=== PATIENT | male | born 1940 | race Caucasian/White ===

== ENCOUNTER 2018-06-13 05:35 | Emergency (ER) | payer OTHER ==
[2018-06-13] MEDS ORDERED: DIPHENHYDRAMINE 50 MG/ML VIAL ONE (06:41)
[2018-06-13] MEDS ORDERED: DEXAMETHASONE 4 MG/ML VIAL ONE (06:42)
[2018-06-13] MEDS ORDERED: FAMOTIDINE 20 MG/2 ML VIAL IV ONE (06:42)
[2018-06-13] MEDS ORDERED: NA CHLORIDE 0.9% 500 ML ONE (06:42)
[2018-06-13 06:58] LABS: Absolute Lymphocytes (CBC) 0.7 K/uL (0.7-4.9); Absolute Monocytes 0.9 K/uL (0.1-1.3); Absolute Neutrophil 5.8 K/uL (1.8-8.0); Basophils % 0.9 % (0-1.3); Hematocrit 44.5 % (39.6-49.0); Lymphocytes % 9.3 % (15.3-44.8); MPV 9.3 fL (7.6-11.3); Monocytes % 11.1 % (3.3-12.3); RBC Red Blood Cell Count 4.96 M/uL (4.33-5.43)
--- NOTE | 2018-06-13 07:11 | EDPHYS ---
Physician Documentation [facility] Name: Oz Jiménez Age: 78 yrs Sex: Male : 1940 Arrival Date: 06/13/2018 Time: 05:36 Bed 13 Private MD: Rangel Machuca R ED Physician Ravin Louise HPI: 06/13 06:13 This 78 yrs old Male presents to ER via Ambulatory with complaints of tamir Allergic Reaction, Facial Swelling. 06:13 The patient presents with itching, rash, redness of skin. Onset: The symptoms/episode tamir began/occurred 5 day(s) ago. Associated signs and symptoms: The patient has no apparent associated signs or symptoms. Possible causes: The patient has no known obvious cause for the symptoms. At home the patient or guardian has treated the symptoms with antifungal meds. Severity of symptoms: At their worst the symptoms were mild moderate in the emergency department the symptoms are unchanged. The patient has not experienced similar symptoms in the past. Historical: - Allergies: 05:41 No Known Allergies; cc3 - PMHx: 05:41 Hypertension; hydrocephalus; cc3 - Immunization history:: Adult Immunizations not up to date. - Social history:: Smoking status: Patient/guardian denies using tobacco, never smoked. - Ebola Screening: : No symptoms or risks identified at this time. ROS: 06:16 Constitutional: Negative for fever, chills, and weight loss, Eyes: Negative for injury, tamir pain, redness, and discharge, ENT: Negative for injury, pain, and discharge, Neck: Negative for injury, pain, and swelling, Cardiovascular: Negative for chest pain, palpitations, and edema, Respiratory: Negative for shortness of breath, cough, wheezing, and pleuritic chest pain, Abdomen/GI: Negative for abdominal pain, nausea, vomiting, diarrhea, and constipation, Back: Negative for injury and pain, : Negative for injury, bleeding, discharge, and swelling, MS/Extremity: Negative for injury and deformity, Neuro: Negative for headache, weakness, numbness, tingling, and seizure, Psych: Negative for depression, anxiety, suicide ideation, homicidal ideation, and hallucinations, Allergy/Immunology: Negative for hives, rash, and allergies, Endocrine: Negative for neck swelling, polydipsia, polyuria, polyphagia, and marked weight changes, Hematologic/Lymphatic: Negative for swollen nodes, abnormal bleeding, and unusual bruising. 06:16 Skin: Positive for erythema, rash, of the face. Exam: 06:16 Constitutional: This is a well developed, well nourished patient who is awake, alert, tamir and in no acute distress. Eyes: Pupils equal round and reactive to light, extra-ocular motions intact. Lids and lashes normal. Conjunctiva and sclera are non-icteric and not injected. Cornea within normal limits. Periorbital areas with no swelling, redness, or edema. ENT: Nares patent. No nasal discharge, no septal abnormalities noted. Tympanic membranes are normal and external auditory canals are clear. Oropharynx with no redness, swelling, or masses, exudates, or evidence of obstruction, uvula midline. Mucous membranes moist. Neck: Trachea midline, no thyromegaly or masses palpated, and no cervical lymphadenopathy. Supple, full range of motion without nuchal rigidity, or vertebral point tenderness. No Meningismus. Chest/axilla: Normal chest wall appearance and motion. Nontender with no deformity. No lesions are appreciated. Cardiovascular: Regular rate and rhythm with a normal S1 and S2. No gallops, murmurs, or rubs. Normal PMI, no JVD. No pulse deficits. Respiratory: Lungs have equal breath sounds bilaterally, clear to auscultation and percussion. No rales, rhonchi or wheezes noted. No increased work of breathing, no retractions or nasal flaring. Abdomen/GI: Soft, non-tender, with normal bowel sounds. No distension or tympany. No guarding or rebound. No evidence of tenderness throughout. Back: No spinal tenderness. No costovertebral tenderness. Full range of motion. MS/ Extremity: Pulses equal, no cyanosis. Neurovascular intact. Full, normal range of motion. Neuro: Awake and alert, GCS 15, oriented to person, place, time, and situation. Cranial nerves II-XII grossly intact. Motor strength 5/5 in all extremities. Sensory grossly intact. Cerebellar exam normal. Normal gait. Psych: Awake, alert, with orientation to person, place and time. Behavior, mood, and affect are within normal limits. 06:16 Skin: on the face. [facility] Vital Signs: 05:41 BP 164 / 87; Pulse 78; Resp 20 S; Temp 97.9(O); Pulse Ox 100% on R/A; Weight 72.57 kg cc3 (R); Height 6 ft. 1 in. (185.42 cm) (R); 07:00 BP 172 / 84; Pulse 72; Resp 16; Temp 98.8; Pulse Ox 99% on R/A; Pain 0/10; ch 08:10 BP 162 / 90; Pulse 76; Resp 14; Temp 98.6; Pulse Ox 99% on R/A; Pain 0/10; ch 05:41 Body Mass Index 21.11 (72.57 kg, 185.42 cm) [facility] MDM: 05:43 Patient medically screened. [facility] 06:18 Data reviewed: vital signs, nurses notes, lab test result(s). [facility] 06/13 06:12 Order name: CBC with Diff; Complete Time: 07:08 [facility] 06/13 06:12 Order name: Comprehensive Metabolic Panel; Complete Time: 07:18 [facility] Administered Medications: 07:05 Drug: NS 0.9% 500 ml Route: IV; Rate: bolus; Site: right antecubital; jd3 08:31 Follow up: IV Status: Completed infusion; IV Intake: 500ml 07:06 Drug: Benadryl 25 mg Route: IVP; Site: right antecubital; jd3 08:00 Follow up: Response: No adverse reaction 07:06 Drug: Pepcid 40 mg Route: IVP; Site: right antecubital; jd3 08:00 Follow up: Response: No adverse reaction; Marked relief of symptoms 07:07 Drug: Decadron - Dexamethasone 10 mg Route: IVP; Site: right antecubital; jd3 08:30 Follow up: Response: No adverse reaction Disposition: 06/13/18 07:10 Discharged to Home. Impression: Rash and other nonspecific skin eruption. - Condition is Stable. - Discharge Instructions: Rash, Seborrheic Dermatitis, Adult, Rash, [id number]. - Prescriptions for Bactroban 2 % Topical Ointment - Apply to affected area 1 application by TOPICAL route every 12 hours; 15 gram. Benadryl 25 mg Oral Capsule - take 1 capsule by ORAL route every 6 hours As needed; 30 tablet. Pepcid 20 mg Oral Tablet - take 1 tablet by ORAL route every 12 hours for 10 days; 20 tablet. Dexamethasone 0.5 mg Oral Tablet - take 2 tablet by ORAL route 2 times per day; 20 tablet. - Medication Reconciliation Form, Thank You Letter, Antibiotic Education, Prescription Opioid Use form. - Follow up: Rangel Machuca; When: 2 - 3 days; Reason: Recheck today's complaints, Continuance of care, Re-evaluation by your physician. - Problem is new. - Symptoms have improved. Signatures: Dispatcher [employer] EDMarla Townsend, RN Ravin De La Cruz ch, MD MD cha Davies, Jonathon RN RN jReba Suggs cc3 Corrections: (The following items were deleted from the chart) 08:30 07:10 06/13/2018 07:10 Discharged to Home. Impression: Rash and other nonspecific skin ch eruption. Condition is Stable. Discharge Instructions: Rash, Seborrheic Dermatitis, Adult, Rash, [id number]. Prescriptions for Bactroban 2 % Topical Ointment - Apply to affected area 1 application by TOPICAL route every 12 hours; 15 gram, Benadryl 25 mg Oral Capsule - take 1 capsule by ORAL route every 6 hours As needed; 30 tablet, Pepcid 20 mg Oral Tablet - take 1 tablet by ORAL route every 12 hours for 10 days; 20 tablet, Dexamethasone 0.5 mg Oral Tablet - take 2 tablet by ORAL route 2 times per day; 20 tablet. and Forms are Medication Reconciliation Form, Thank You Letter, Antibiotic Education, Prescription Opioid Use. Follow up: Rangel Machuca; When: 2 - 3 days; Reason: Recheck today's complaints, Continuance of care, Re-evaluation by your physician. Problem is new. Symptoms have improved. tamir
--- NOTE | 2018-06-13 07:11 | ER ---
Nurse's Notes [facility] Name: Oz Jiménez Age: 78 yrs Sex: Male : 1940 Arrival Date: 06/13/2018 Time: 05:36 Bed 13 Private MD: Rangel Machuca R Diagnosis: Rash and other nonspecific skin eruption Presentation: 06/13 05:41 Presenting complaint: Patient states: "I was prescribed by a inspector water pollution control of this cc3 Econazole Nitrate topical cream for my facial redness and scaling but after 3 days of using it my face becomes more red and looks swollen so I stopped using it for a week now but still my face feels fiery red". Transition of care: patient was not received from another setting of care. Onset: The symptoms/episode began/occurred 1 week(s) ago. Anaphylaxis evaluation, redness all over the face and neck. Onset of symptoms was June 06, 2018. Risk Assessment: Do you want to hurt yourself or someone else? Patient reports no desire to harm self or others. Initial Sepsis Screen: Does the patient meet any 2 criteria? No. Patient's initial sepsis screen is negative. Does the patient have a suspected source of infection? No. Patient's initial sepsis screen is negative. Care prior to arrival: None. 05:41 Method Of Arrival: Ambulatory cc3 05:41 Acuity: ASUNCION 3 cc3 Triage Assessment: 05:41 General: Appears in no apparent distress. uncomfortable, Behavior is calm, cooperative. cc3 Pain: Denies pain. EENT: redness all over the face and neck. Neuro: Level of Consciousness is awake, alert, obeys commands, Oriented to person, place, time, situation, Appropriate for age. Cardiovascular: Denies chest pain, Patient's skin is warm and dry. Respiratory: Airway is patent Respiratory effort is even, unlabored, Respiratory pattern is regular, symmetrical. GI: Abdomen is round non-distended. : No signs and/or symptoms were reported regarding the genitourinary system. Derm: Reports burning, itching, peeling, since a week ago. all over his face and neck. Musculoskeletal: Circulation, motion, and sensation intact. Range of motion: intact in all extremities. Historical: - Allergies: 05:41 No Known Allergies; cc3 - PMHx: 05:41 Hypertension; hydrocephalus; cc3 - Immunization history:: Adult Immunizations not up to date. - Social history:: Smoking status: Patient/guardian denies using tobacco, never smoked. - Ebola Screening: : No symptoms or risks identified at this time. Screenin:41 Abuse screen: Denies threats or abuse. Denies injuries from another. Nutritional cc3 screening: No deficits noted. Tuberculosis screening: No symptoms or risk factors identified. Fall Risk Ambulatory Aid- None/Bed Rest/Nurse Assist (0 pts). Gait- Normal/Bed Rest/Wheelchair (0 pts) Mental Status- Oriented to own ability (0 pts). Assessment: 05:41 Respiratory: Airway is patent Respiratory effort is even, unlabored, Respiratory cc3 pattern is regular, symmetrical, Breath sounds are clear bilaterally. 06:30 Reassessment: Patient appears in no apparent distress at this time. Patient and/or cc3 family updated on plan of care and expected duration. Pain level reassessed. Patient is alert, oriented x 3, equal unlabored respirations, skin warm/dry/pink. 08:07 Reassessment: Patient appears in no apparent distress at this time. Patient and/or ch family updated on plan of care and expected duration. Pain level reassessed. Patient is alert, oriented x 3, equal unlabored respirations, skin warm/dry/pink. 08:11 Reassessment: Patient appears in no apparent distress at this time. ch 08:25 Reassessment: Patient appears in no apparent distress at this time. Patient and/or ch family updated on plan of care and expected duration. Pain level reassessed. skin is still bright red, swollen on his face. pt states it is no better or worse. no s/s of distress. Patient states feeling better. Patient states symptoms have improved. Vital Signs: 05:41 BP 164 / 87; Pulse 78; Resp 20 S; Temp 97.9(O); Pulse Ox 100% on R/A; Weight 72.57 kg cc3 (R); Height 6 ft. 1 in. (185.42 cm) (R); 07:00 BP 172 / 84; Pulse 72; Resp 16; Temp 98.8; Pulse Ox 99% on R/A; Pain 0/10; ch 08:10 BP 162 / 90; Pulse 76; Resp 14; Temp 98.6; Pulse Ox 99% on R/A; Pain 0/10; ch 05:41 Body Mass Index 21.11 (72.57 kg, 185.42 cm) cc3 ED Course: 05:36 Patient arrived in ED. am2 05:36 Rangel Machuca MD is Private Physician. am2 05:41 Reba Bailon is Primary Nurse. cc3 05:41 Arm band placed on right wrist. Patient notified of wait time. cc3 05:41 Patient has correct armband on for positive identification. Placed in gown. Bed in low cc3 position. Call light in reach. Side rails up X 1. Pulse ox on. NIBP on. 05:43 Ravin Louise MD is Attending Physician. tamir 05:59 Triage completed. cc3 06:50 Inserted saline lock: 20 gauge in right antecubital area, using aseptic technique. oe Blood collected. 07:06 Report given to JOLEEN Ahumada. cc3 07:08 Rangel Machuca MD is Referral Physician. tamir 08:07 Marla Cid RN is Primary Nurse. ch 08:10 No apparent distress. ch 08:10 No provider procedures requiring assistance completed. IV discontinued, intact, ch bleeding controlled, No redness/swelling at site. Pressure dressing applied. Administered Medications: 07:05 Drug: NS 0.9% 500 ml Route: IV; Rate: bolus; Site: right antecubital; jd3 08:31 Follow up: IV Status: Completed infusion; IV Intake: 500ml ch 07:06 Drug: Benadryl 25 mg Route: IVP; Site: right antecubital; jd3 08:00 Follow up: Response: No adverse reaction ch 07:06 Drug: Pepcid 40 mg Route: IVP; Site: right antecubital; jd3 08:00 Follow up: Response: No adverse reaction; Marked relief of symptoms ch 07:07 Drug: Decadron - Dexamethasone 10 mg Route: IVP; Site: right antecubital; jd3 08:30 Follow up: Response: No adverse reaction ch Intake: 08:31 IV: 500ml; Total: 500ml. ch Outcome: 07:10 Discharge ordered by . tamir 08:10 Discharged to home ambulatory. ch 08:10 Condition: stable 08:10 Discharge instructions given to patient, family, Instructed on discharge instructions, follow up and referral plans. medication usage, Demonstrated understanding of instructions, follow-up care, medications, Prescriptions given X 1. 08:30 Patient left the ED. Signatures: Marla Cid, RN RN Ravin Garcia MD MD cha Espinosa, Orlando oe Moreno, Amanda am2 Ricardo Gomez RN RN jd3 Reba Bailon cc3
[2018-06-13 07:13] LABS: Albumin 4.3 g/dL (3.4-5.0); Bilirubin Total 0.7 mg/dL (0.2-1.0); Protein, Total 7.3 g/dL (6.4-8.2)
== END 2018-06-13 08:30 | disposition home or self-care (01) ==
LOC: ER 05:35
DX: R21 Rash and other nonspecific skin eruption (principal); I10 Essential (primary) hypertension
CPT/HCPCS: 36415; 80053; 85025; 96361; 96374; 96375; 99284

== ENCOUNTER 2020-01-20 21:14 | Emergency (ER) | payer OTHER ==
[2020-01-20] MEDS ORDERED: Caclcium Chloride 10% INJ SYR IV ONE (21:15)
[2020-01-20] MEDS ORDERED: D50W 25 GM/50 ML SYRINGE/VIAL IV ONE (21:15)
[2020-01-20] MEDS ORDERED: ROCURONIUM 50 MG/5 ML VIAL IV ONE (21:15)
[2020-01-20] MEDS ORDERED: EPINEPHrine 1 MG/10 ML SYR IV ONE (21:15)
[2020-01-20] MEDS ORDERED: RSI MEDICATION KIT IV ONE (21:32)
[2020-01-20] MEDS ORDERED: NA CHLORIDE 0.9% 1,000 ML ONE ×2 (21:34→22:07)
[2020-01-20 21:37] LABS: Absolute Lymphocytes (CBC) 1.2 K/uL (0.7-4.9); Basophils % 0.6 % (0-1.3); Hematocrit 38.7 % (39.6-49.0); Lymphocytes % 9.2 % (15.3-44.8); MPV 10.4 fL (7.6-11.3); RBC Red Blood Cell Count 4.31 M/uL (4.33-5.43)
[2020-01-20] MEDS ORDERED: HEPARIN 5000 UNIT/ML 1 ML VIAL ONE (21:39)
[2020-01-20] MEDS ORDERED: TENECTEPLASE 50 MG/10 ML VIAL IV ONE (21:40)
[2020-01-20] MEDS ORDERED: HEPARIN/D5W 25,000 UNIT/500 ML BAG IV ONE (21:40)
[2020-01-20] MEDS ORDERED: ASPIRIN 81 MG CHEWABLE TABLET ONE ×2 (21:40→21:49)
[2020-01-20] MEDS ORDERED: DOPAMINE/D5W 400 MG/250 ML BAG IV ONE (21:43)
[2020-01-20 21:46] LABS: Protime INR 1.09
[2020-01-20 21:52] LABS: Albumin 3.7 g/dL (3.4-5.0); Bilirubin Direct 0.2 mg/dL (0-0.2); Bilirubin Total 0.5 mg/dL (0.2-1.0); Potassium 3.9 mmol/L (3.5-5.1); Protein, Total 7.1 g/dL (6.4-8.2); Troponin (Emerg Dept Use Only) 0.15 ng/mL (0.0-0.045)
[2020-01-20] MEDS ORDERED: ONDANSETRON 4 MG/2 ML VIAL ONE (21:54)
[2020-01-20] MEDS ORDERED: KETAMINE HCL 500 MG/5 ML VIAL ONE (21:55)
[2020-01-20] MEDS ORDERED: DOBUTAMINE 250 MG/250 ML BAG IV ONE (21:59)
--- NOTE | 2020-01-20 22:05 | ER ---
Nurse's Notes [facility] Name: Oz Jim[facility]nez Age: 79 yrs Sex: Male : 1940 Arrival Date: 01/20/2020 Time: 21:15 Bed 4 Private MD: Rangel Machuca R Diagnosis: ST elevation (STEMI) myocardial infarction involving left main coronary artery;ST elevation (STEMI) myocardial infarction of other sites;Thrombocytopenia, unspecified Presentation: 01/19 21:31 Chief complaint: Parent and/or Guardian states: Friend reports he went to visit patient ea and found him very lethargic. Brought pt into ED, pt initially not responding. Pt started responding, reports he was having chest pain earlier in the day. Coronavirus screen: At this time, the client does not indicate any symptoms associated with coronavirus-19. Ebola Screen: No symptoms or risks identified at this time. Initial Sepsis Screen: Does the patient meet any 2 criteria? No. Patient's initial sepsis screen is negative. Does the patient have a suspected source of infection? No. Patient's initial sepsis screen is negative. Risk Assessment: Do you want to hurt yourself or someone else? Patient reports no desire to harm self or others. Onset of symptoms was January 20, 2020. 21:31 Method Of Arrival: Wheelchair ea 21:31 Acuity: ASUNCION 3 ea 21:31 Care prior to arrival: None. rr5 22:34 Compressions began at 22:21. ea Historical: - Allergies: 21:38 No Known Allergies; sg 21:39 No Known Allergies; ea - Home Meds: 21:39 lisinopril 10 mg Oral tab 1 tab once daily [Active]; Omeprazole Oral [Active]; Tylenol ea #3 Oral [Active]; Cephalexin Oral [Active]; - PMHx: 21:37 Hydrocephalus; Hypertension; sg - PSHx: 21:39 skin graft to head; ea - Immunization history:: Adult Immunizations up to date. - Social history:: Smoking status: Patient denies any tobacco usage or history of. Screenin:35 Abuse screen: Denies threats or abuse. Nutritional screening: No deficits noted. ea Tuberculosis screening: No symptoms or risk factors identified. Fall Risk IV access (20 points). Assessment: 21:18 General: Appears ill. General: Behavior is responding to painful stimulus. Pain: Unable ea to use pain scale. responds to painful stimulus. Neuro: Level of Consciousness is awake. Respiratory: Airway is patent Respiratory effort is even, unlabored, Respiratory pattern is regular, symmetrical. Derm: Skin is dry, Skin is pale, Skin temperature is cool. 21:20 General: Behavior is cooperative, Pt is able to answer questions . Pain: Denies pain. ea Neuro: Level of Consciousness is awake, alert, obeys commands, Oriented to person, place, time, situation. Respiratory: Airway is patent Respiratory effort is even, unlabored, Respiratory pattern is regular, symmetrical. Derm: Skin is dry, Skin is pale, Skin temperature is cool. 22:16 Reassessment: Report called to [employer] at [facility]. ea 22:21 Reassessment: PEA noted, CPR initiated. ea 22:21 Cardiac rhythm is PEA. ea 22:21 CPR assessment: intubated, Ambu ventilation, pale. rr5 22:24 Cardiovascular: Pt pale. Pulses are palpable in left carotid pulse. ea 22:29 Cardiovascular: Rhythm is ventricular fibrillation. ea 22:32 Cardiovascular: No pulse Rhythm is ventricular fibrillation. ea 22:34 Cardiovascular: Rhythm is ventricular fibrillation. ea 22:37 Cardiovascular: no pulse Rhythm is ventricular fibrillation. ea 22:58 Reassessment: ACLS per protocol terminated, no heart activity in ultrasound, cardiac rr5 tracing PEA, pronounced by dr. hopkins at 2238H. 23:22 Reassessment: Altaf GUY at bedside. Data Base Administrator at bedside. ea 23:35 Reassessment: Charli Dominguez (neighbor) [phone]. ea 23:55 Reassessment: spoke to [employer] staff [facility] by nieves. rr5 01/20 00:12 Reassessment: judge rg signed the undertaker form, patient will be taken by [place] [id number] [facility], not for medical exam. judge rg will sign the certificate. 00:43 Reassessment: [facility] ea Vital Signs: 01/19 21:31 BP 67 / 53; Pulse 90; Resp 24; Temp 97.1; Pulse Ox 95% ; Weight 72.57 kg; ea 21:34 BP 69 / 57; Pulse 85; Resp 21; Pulse Ox 99% on 6 lpm NC; Weight 75 kg; mw2 21:50 BP 76 / 52; Pulse 128; Resp 22; Pulse Ox 97% on 15 lpm ETT ambu; rr5 22:00 BP 64 / 45; Pulse 135; Resp 16; Pulse Ox 98% on 15 lpm ETT ambu; rr5 22:05 BP 53 / 44; Pulse 144; Resp 20; Pulse Ox 100% on 15 lpm ETT ambu; rr5 22:21 Pulse 65; rr5 22:38 Pulse 60; Resp 0; rr5 22:54 Pulse 0; Resp 0; rr5 22:21 PEA rr5 22:38 PEA, ACLS per protocol terminated rr5 ED Course: 21:15 Patient arrived in ED. fc 21:16 Rangel Machuca MD is Private Physician. fc 21:20 Inserted saline lock: 20 gauge in right antecubital area, using aseptic technique. ea Blood collected. 21:20 laboratory monitor on. Pulse ox on. NIBP on. ea 21:20 Arm band placed on right wrist. Patient placed in an exam room, on a stretcher, on ea oxygen, on nuclear monitoring technician, on pulse oximetry. 21:23 Inserted saline lock: 20 gauge in left EJ, using aseptic technique. ,using aseptic ea technique. placed by Dr. Hopkins. 21:26 Naveed Hopkins MD is Attending Physician. tw4 21:[address] [facility]. spoke with Mariel Hopper. ar5 21:30 Per Mariel Hopper \T\ [facility] they are \T\ capacity. ar 5 21:33 Initiated transfer to [facility]. Spoke with Alida Chen. ar5 21:35 Triage completed. ea 21:36 Patient has correct armband on for positive identification. ea 21:36 Faxed ekg to [phone]. ar5 21:40 Patient transferred, IV remains in place. ea 21:43 done with Storeroom Clerk \T\ [facility]. ar5 21:48 Acceptance given by Alida Chen. Pt going to [facility] Airset Caster. Accepting ar5 physician Dr. Khadra Brown. Call report to [phone]. 21:50 Assisted provider with central line placement. Set up central line tray. Triple lumen ea line placed in right femoral. Line placed by Naveed Hopkins MD Placement verified by blood return, Dressed with Tegaderm, Blood was collected. Patient tolerated well. 21:50 [facility] Life flight eta 24 Minutes. ar5 21:51 Intubation: 7.5 Fr. ETT placed orally. Performed by Naveed Hopkins MD Successful on ea first attempt. Placement verified by CO2 detector w/ + color change, auscultating bilateral breath sounds, Ventilated with Ambu bag. 23 at teeth. 21:53 Bradford cath inserted, using sterile technique, 16 Fr., by aerodynamicist, balloon inflated, to ea gravity drainage, Patient tolerated well. 22:00 NGT: inserted 14 Fr. via left nare. verified placement of air over stomach, verified sg return of gastric contents, to intermittent suction. Patient tolerated well. 22:18 XRAY Chest (1 view) In Process Unspecified. EDMS 22:29 Defibrillated with 200 joules. ea 22:32 Defibrillated with 200 joules. ea 22:34 Defibrillated with 200 joules. ea 22:37 Defibrillated with 200 joules. ea 22:40 Cancelled transfer to [facility] due to pt. expiring. ar5 22:46 Naveed Hopkins MD is Pronouncing Provider. tw4 22:48 Contacted police dept. to call Data Base Administrator. ar5 23:15 Nieevs Gan, RN is Primary Nurse. ea 23:30 Charli Dominguez (neighbor) [phone]. ar5 Administered Medications: Discontinued: Dopamine drip 10 mcg/kg/min - (DOPamine 400 mg, D5W 250 ml) IV at calculated rate continuous; Titrate to keep systolic blood pressure greater than 90mmHg 21:20 Drug: Aspirin Chewable Tablet 324 mg Route: PO; rr5 22:00 Follow up: Response: No adverse reaction ea 21:25 Drug: NS 0.9% 1000 ml Route: IV; Rate: 1 bolus; Site: Other; rr5 22:00 Follow up: Response: No adverse reaction; IV Status: Completed infusion; IV Intake: ea 1000ml 21:30 Drug: Dopamine drip 10 mcg/kg/min - (DOPamine 400 mg, D5W 250 ml) Route: IV; Rate: sg calculated rate; Site: right antecubital; 21:38 Drug: Heparin (IA Drip) 12 units/kg/hr - (HEParin 87969 units, D5W 500 ml) rr5 {Co-Signature: everardo (Nieves Gan RN).} Route: IV; Rate: calculated rate; Site: Other; 22:50 Follow up: Response: Other; IV Status: Order to discontinue infusion; rr5 21:38 Drug: Heparin (IA-Bolus with thrombolytic) - HEParin 60 units/kg {Co-Signature: everardo rr5 (Nieves Gan RN).} Route: IVP; Site: Other; 22:50 Follow up: Response: Other; rr5 21:46 Drug: DOBUTamine (250 mg/250mL premix) 5 mcg/kg/min Route: IV; Rate: calculated rate; rr5 Site: right femoral; 22:38 Follow up: IV Status: Order to discontinue infusion rr5 23:30 Follow up: Response: No adverse reaction ea 21:49 Drug: Rocuronium 60 mg Route: IVP; Site: right femoral; ea 22:00 Follow up: Response: No adverse reaction ea 21:49 Drug: Ketamine 1 mg/kg Route: IVP; Site: right femoral; ea 22:00 Follow up: Response: No adverse reaction ea 21:55 Drug: Tenecteplase 45 mg {Co-Signature: everardo (Nieves Gan RN).} Route: IV; Rate: rr5 calculated rate; Site: right femoral; 22:00 Follow up: Response: No adverse reaction; IV Status: Completed infusion ea 22:14 Drug: Andrea-Synephrine 100 mcg/min Route: IV; Rate: calculated rate; Site: right femoral; ea 22:50 Follow up: Response: Other; IV Status: Order to discontinue infusion; rr5 22:21 Drug: EPINEPHrine 0.1mg/mL 1:10,000 1 mg Route: IVP; Site: right antecubital; ea 22:38 Follow up: Response: Other; rr5 22:21 Drug: Sodium Bicarbonate 1 amp Route: IVP; Site: right antecubital; ea 22:38 Follow up: Response: Other; rr5 22:26 Drug: EPINEPHrine (PF) 1mg/mL 1:1,000 0.01 mg/kg Route: IV; Rate: 1 calculated rate; ea Site: right femoral; 22:50 Follow up: Response: Other; IV Status: Order to discontinue infusion; rr5 22:30 Drug: EPINEPHrine 0.1mg/mL 1:10,000 1 mg Route: IVP; Site: right femoral; ea 22:50 Follow up: Response: Other; rr5 22:32 CANCELLED (Inappropriate at this time): EPINEPHrine (PF) 1mg/mL 1:1,000 0.01 mg/kg IV ea at 1 bolus in right femoral once; not to exceed 1 milligram 22:33 Drug: amiodarone 300 mg Route: IVP; Site: right forearm; ea 22:38 Follow up: Response: Other; rr5 22:35 Drug: EPINEPHrine 0.1mg/mL 1:10,000 1 mg Route: IVP; Site: right femoral; ea 22:38 Follow up: Response: Other; rr5 22:39 Drug: amiodarone 150 mg Route: IVP; Site: right femoral; ea 22:50 Follow up: Response: Other; rr5 22:39 Drug: EPINEPHrine 0.1mg/mL 1:10,000 1 mg Route: IVP; Site: right forearm; ea 23:41 Follow up: Response: Other; rr5 Intake: 22:00 IV: 1000ml; Total: 1000ml. ea Outcome: 22:04 ER care complete, transfer ordered by . tw4 22:38 Patient : Time of 22:38 Pronounced by Naveed Hopkins MD rr5 22:38 Condition: 22:40 Outcome Patient ea 01/20 00:44 Patient left the ED. ea Signatures: Dispatcher [employer] EDMS Alex Shirley RN RN Valarie Fortune RN Nieves Berry RN RN ea Wadley, Terrence, MD MD tw4 [facility] Jaun Vasquez RN JOLEEN rr5 Susannah Munguia [facility] Nieves Gan RN, ea Corrections: (The following items were deleted from the chart) 01/19 22:31 22:19 EPINEPHrine (PF) 1mg/mL 1:1,000 0.01 mg/kg IV at 1 bolus in right femoral ea ea 22:45 21:18 Neuro: Level of Consciousness is awake, alert, obeys commands, Oriented to ea person, place, time, ea 23:09 22:58 Reassessment: ACLS per protocol terminated, no heart activity in ultrasound, rr5 cardiac tracing PEA, pronounced by dr. hopkins at 2258H. rr5 23:15 22:38 Pulse 0bpm; Resp 0bpm; rr5 rr5 23:15 22:21 Pulse 123bpm; PEA; rr5 rr5 23:18 22:37 Cardiovascular: Rhythm is ventricular fibrillation ea ea 23:19 22:37 Cardiovascular: Rhythm is No pulse ea ea 23:19 22:32 Cardiovascular: Rhythm is ventricular fibrillation ea ea 23:22 21:51 Intubation: 7.5 Fr. ETT placed orally. Performed by Naveed Hopkins MD Successful ea on first attempt. Placement verified by CO2 detector w/ + color change, auscultating bilateral breath sounds, Ventilated with Ambu bag. 23 at teeth. ea 23:31 23:30 Charli Dominguez neighbor [phone] ar5 ar5 23:34 23:22 Reassessment: [place] [employer] at bedside. Data Base Administrator at bedside ea ea 23:41 22:38 Pulse 123bpm; Resp 0bpm; PEA, ACLS per protocol terminated; rr5 rr5
--- NOTE | 2020-01-20 22:05 | EDPHYS ---
Physician Documentation [facility] Name: Oz Jiménez Age: 79 yrs Sex: Male : 1940 Arrival Date: 01/20/2020 Time: 21:15 Bed 4 Private MD: Rangel Machuca R ED Physician Naveed Hopkins HPI: 01/20 06:24 This 79 yrs old Male presents to ER via Wheelchair with complaints of General tw4 Weakness, Chest Pain > 30 y/o. 06:24 The patient or guardian reports chest pain that is located primarily in the anterior tw4 chest wall. Onset: today. The pain does not radiate. Associated signs and symptoms: The patient has no apparent associated signs or symptoms. The chest pain is described as dull. Duration: The patient or guardian reports a single episode. Modifying factors: The symptoms are alleviated by nothing. the symptoms are aggravated by nothing. Severity of pain: At its worst the pain was moderate in the emergency department the pain is unchanged. Unable to obtain HPI due to patient distress. Historical: - Allergies: 01/19 21:38 No Known Allergies; sg 21:39 No Known Allergies; ea - Home Meds: 21:39 lisinopril 10 mg Oral tab 1 tab once daily [Active]; Omeprazole Oral [Active]; Tylenol ea #3 Oral [Active]; Cephalexin Oral [Active]; - PMHx: 21:37 Hydrocephalus; Hypertension; sg - PSHx: 21:39 skin graft to head; ea - Immunization history:: Adult Immunizations up to date. - Social history:: Smoking status: Patient denies any tobacco usage or history of. ROS: 01/20 06:24 Constitutional: Negative for fever, chills, and weight loss, Eyes: Negative for injury, tw4 pain, redness, and discharge, ENT: Negative for injury, pain, and discharge, Respiratory: Negative for shortness of breath, cough, wheezing, and pleuritic chest pain, Abdomen/GI: Negative for abdominal pain, nausea, vomiting, diarrhea, and constipation, Back: Negative for injury and pain, MS/Extremity: Negative for injury and deformity, Skin: Negative for injury, rash, and discoloration, Neuro: Negative for headache, weakness, numbness, tingling, and seizure. Cardiovascular: Positive for chest pain, Negative for edema, orthopnea, palpitations, paroxysmal nocturnal dyspnea. Exam: 06:24 Constitutional: This is a well developed, well nourished patient who is awake, alert, tw4 and in no acute distress. Head/Face: Normocephalic, atraumatic. Chest/axilla: Normal chest wall appearance and motion. Nontender with no deformity. No lesions are appreciated. Cardiovascular: Regular rate and rhythm with a normal S1 and S2. No gallops, murmurs, or rubs. Normal PMI, no JVD. No pulse deficits. Respiratory: Lungs have equal breath sounds bilaterally, clear to auscultation and percussion. No rales, rhonchi or wheezes noted. No increased work of breathing, no retractions or nasal flaring. Abdomen/GI: Soft, non-tender, with normal bowel sounds. No distension or tympany. No guarding or rebound. No evidence of tenderness throughout. Back: No spinal tenderness. No costovertebral tenderness. Full range of motion. Skin: Warm, dry with normal turgor. Normal color with no rashes, no lesions, and no evidence of cellulitis. MS/ Extremity: Pulses equal, no cyanosis. Neurovascular intact. Full, normal range of motion. Neuro: Awake and alert, GCS 15, oriented to person, place, time, and situation. Cranial nerves II-XII grossly intact. Motor strength 5/5 in all extremities. Sensory grossly intact. Cerebellar exam normal. Normal gait. Vital Signs: 01/19 21:31 BP 67 / 53; Pulse 90; Resp 24; Temp 97.1; Pulse Ox 95% ; Weight 72.57 kg; ea 21:34 BP 69 / 57; Pulse 85; Resp 21; Pulse Ox 99% on 6 lpm NC; Weight 75 kg; mw2 21:50 BP 76 / 52; Pulse 128; Resp 22; Pulse Ox 97% on 15 lpm ETT ambu; rr5 22:00 BP 64 / 45; Pulse 135; Resp 16; Pulse Ox 98% on 15 lpm ETT ambu; rr5 22:05 BP 53 / 44; Pulse 144; Resp 20; Pulse Ox 100% on 15 lpm ETT ambu; rr5 22:21 Pulse 65; rr5 22:38 Pulse 60; Resp 0; rr5 22:54 Pulse 0; Resp 0; rr5 22:21 PEA rr5 22:38 PEA, ACLS per protocol terminated rr5 Procedures: 22:02 Intubation: Ventilated with 100% NRB prior to procedure. Intubated orally using # 4 tw4 Pao blade with 7.5 mm ETT. Attempts were not successful. Ventilated with Ambu bag. Tube secured with ETT frazier Placement verified by CXR, CO2 detector with (+) color change, Patient tolerated well. Central Line: the site was prepped with in sterile fashion, a triple lumen catheter was inserted, in the right femoral vein, in 1 attempts. placement was verified, by blood return, the site was dressed with using sterile technique, the patient tolerated the procedure, well. Peripheral line: by aseptic technique a peripheral line was placed in the left external jugular vein. 01/20 06:24 CPR: Initial patient assessment: The presenting cardiac rhythm is V fib. the patient tw4 was intubated prior to arrival, Compressions: began Meds given: Epinephrine high dose. Defibrillation: 200 joules X 1. 300 joules X 1. 360 joules X 2. despite ED evaluation and treatment, the patient . CPR was stopped at 22:39. MDM: 01/19 22:02 Differential diagnosis: acute myocardial infarction, coronary artery disease. Data tw4 reviewed: vital signs, nurses notes. Data interpreted: Pulse oximetry: Interpretation: borderline. Plan: will plan to intubate. Counseling: I had a detailed discussion with the patient and/or guardian regarding: the historical points, exam findings, and any diagnostic results supporting the discharge/admit diagnosis, the need to transfer to another facility. 22:04 Patient medically screened. tw4 01/19 21:28 Order name: Basic Metabolic Panel; Complete Time: 22:06 tw4 01/19 22:06 Interpretation: Normal except: GLUC 182; GFR 41; CRE 1.62; BUN 24. tw4 01/19 21: Order name: CBC with Diff; Complete Time: : tw4 01/19 22:06 Interpretation: Normal except: WBC 13.5; RBC 4.31; HGB 12.5; HCT 38.7; PLT 140; LYM% tw4 9.2; MARLO% 83.4; NEUT A 11.3. 01/19 21: Order name: LFT's; Complete Time: 22: tw4 10/08 22:07 Interpretation: Within normal limits. tw4 01/19 21:28 Order name: Magnesium; Complete Time: 22:06 tw4 01/19 22:07 Interpretation: Within normal limits: MG 2.0. tw4 01/19 21:28 Order name: NT PRO-BNP; Complete Time: 22:06 tw4 01/19 22:06 Interpretation: Normal except: NT PRO-BNP 690. tw4 01/19 21:28 Order name: PT-INR; Complete Time: 22:06 tw4 01/19 21:28 Order name: Troponin (emerg Dept Use Only); Complete Time: 22:06 tw4 01/19 22:07 Interpretation: Abnormal: TROPED 0.15. tw4 01/19 21:28 Order name: XRAY Chest (1 view) tw4 01/19 21:36 Order name: Lactate; Complete Time: 22:06 sg 01/19 22:07 Interpretation: Abnormal: LAC 4.4. tw4 01/19 22:35 Order name: Glucose, Ancillary Testing; Complete Time: 23:06 EDMS 01/19 23:06 Interpretation: GLUC,ANCIL 202. tw4 01/19 21:28 Order name: EKG; Complete Time: 21:29 tw4 01/19 21:28 Order name: Cardiac monitoring; Complete Time: 21:32 tw4 01/19 21:28 Order name: EKG - Nurse/Tech; Complete Time: 21:32 tw4 01/19 21:28 Order name: IV Saline Lock; Complete Time: 21:32 tw4 01/19 21:28 Order name: Labs collected and sent; Complete Time: 21:33 tw4 01/19 21:28 Order name: O2 Per Protocol; Complete Time: 21:33 tw4 01/19 21:28 Order name: O2 Sat Monitoring; Complete Time: 21:33 tw4 01/19 22:13 Order name: NG Tube; Complete Time: 22:18 sg 01/19 22:13 Order name: Intubation Setup; Complete Time: 22:17 sg Administered Medications: Discontinued: Dopamine drip 10 mcg/kg/min - (DOPamine 400 mg, D5W 250 ml) IV at calculated rate continuous; Titrate to keep systolic blood pressure greater than 90mmHg 21:20 Drug: Aspirin Chewable Tablet 324 mg Route: PO; rr5 22:00 Follow up: Response: No adverse reaction ea 21:25 Drug: NS 0.9% 1000 ml Route: IV; Rate: 1 bolus; Site: Other; rr5 22:00 Follow up: Response: No adverse reaction; IV Status: Completed infusion; IV Intake: ea 1000ml 21:30 Drug: Dopamine drip 10 mcg/kg/min - (DOPamine 400 mg, D5W 250 ml) Route: IV; Rate: sg calculated rate; Site: right antecubital; 21:38 Drug: Heparin (NH Drip) 12 units/kg/hr - (HEParin 06316 units, D5W 500 ml) rr5 {Co-Signature: everardo (Kayleigh Gan RN).} Route: IV; Rate: calculated rate; Site: Other; 22:50 Follow up: Response: Other; IV Status: Order to discontinue infusion; rr5 21:38 Drug: Heparin (NH-Bolus with thrombolytic) - HEParin 60 units/kg {Co-Signature: everardo rr5 (Kayleigh Gan RN).} Route: IVP; Site: Other; 22:50 Follow up: Response: Other; rr5 21:46 Drug: DOBUTamine (250 mg/250mL premix) 5 mcg/kg/min Route: IV; Rate: calculated rate; rr5 Site: right femoral; 22:38 Follow up: IV Status: Order to discontinue infusion rr5 23:30 Follow up: Response: No adverse reaction ea 21:49 Drug: Rocuronium 60 mg Route: IVP; Site: right femoral; ea 22:00 Follow up: Response: No adverse reaction ea 21:49 Drug: Ketamine 1 mg/kg Route: IVP; Site: right femoral; ea 22:00 Follow up: Response: No adverse reaction ea 21:55 Drug: Tenecteplase 45 mg {Co-Signature: everardo (Kayleigh Gan RN).} Route: IV; Rate: rr5 calculated rate; Site: right femoral; 22:00 Follow up: Response: No adverse reaction; IV Status: Completed infusion ea 22:14 Drug: Andrea-Synephrine 100 mcg/min Route: IV; Rate: calculated rate; Site: right femoral; ea 22:50 Follow up: Response: Other; IV Status: Order to discontinue infusion; rr5 22:21 Drug: EPINEPHrine 0.1mg/mL 1:10,000 1 mg Route: IVP; Site: right antecubital; ea 22:38 Follow up: Response: Other; rr5 22:21 Drug: Sodium Bicarbonate 1 amp Route: IVP; Site: right antecubital; ea 22:38 Follow up: Response: Other; rr5 22:26 Drug: EPINEPHrine (PF) 1mg/mL 1:1,000 0.01 mg/kg Route: IV; Rate: 1 calculated rate; ea Site: right femoral; 22:50 Follow up: Response: Other; IV Status: Order to discontinue infusion; rr5 22:30 Drug: EPINEPHrine 0.1mg/mL 1:10,000 1 mg Route: IVP; Site: right femoral; ea 22:50 Follow up: Response: Other; rr5 22:32 CANCELLED (Inappropriate at this time): EPINEPHrine (PF) 1mg/mL 1:1,000 0.01 mg/kg IV ea at 1 bolus in right femoral once; not to exceed 1 milligram 22:33 Drug: amiodarone 300 mg Route: IVP; Site: right forearm; ea 22:38 Follow up: Response: Other; rr5 22:35 Drug: EPINEPHrine 0.1mg/mL 1:10,000 1 mg Route: IVP; Site: right femoral; ea 22:38 Follow up: Response: Other; rr5 22:39 Drug: amiodarone 150 mg Route: IVP; Site: right femoral; ea 22:50 Follow up: Response: Other; rr5 22:39 Drug: EPINEPHrine 0.1mg/mL 1:10,000 1 mg Route: IVP; Site: right forearm; ea 23:41 Follow up: Response: Other; rr5 Disposition: Patient pronounced on 01/20/20 22:39 by Naveed Hopkins. Impression: ST elevation (STEMI) myocardial infarction involving left main coronary artery, ST elevation (STEMI) myocardial infarction of other sites, Thrombocytopenia, unspecified. - Released to Power Machine Operator. Signatures: Dispatcher [employer] EDAlex Palmer RN RN sg Antunez, Elena, RN RN ea Wadley, Terrence, MD MD tw4 Jaun Vasquez RN RN rr5 Kayleigh Gan RN, ea Corrections: (The following items were deleted from the chart) 22:12 22:04 01/20/2020 22:04 Transfer ordered to [facility]. Diagnosis is ST tw4 elevation (STEMI) myocardial infarction involving left main coronary artery; ST elevation (STEMI) myocardial infarction involving other sites; Cardiogenic shock. Reason for transfer: Higher level of care. Accepting physician is Dr Joel Brown. Condition is Critical. Problem is new. Symptoms are unchanged. tw4 22:32 22:30 EPINEPHrine (PF) 1mg/mL 1:1,000 0.01 mg/kg IV at 1 bolus in right femoral once; ea not to exceed 1 milligram given. ea :32 22:31 EPINEPHrine (PF) 1mg/mL 1:1,000 0.01 mg/kg IV at 1 bolus in right femoral once; ea not to exceed 1 milligram ordered. ea 22:46 22:12 01/20/2020 22:04 Transfer ordered to [facility]. Diagnosis is ST tw4 elevation (STEMI) myocardial infarction involving left main coronary artery; ST elevation (STEMI) myocardial infarction involving other sites; Cardiogenic shock; Thrombocytopenia, unspecified. Reason for transfer: Higher level of care. Accepting physician is Dr Joel Brown. Condition is Critical. Problem is new. Symptoms are unchanged. tw4 01/20 00:44 01/19 22:47 01/20/2020 22:47 Patient pronounced on 01/20/2020 at 22:39 by everardo Hopkins. Impression: ST elevation (STEMI) myocardial infarction involving left main coronary artery; ST elevation (STEMI) myocardial infarction of other sites; Thrombocytopenia, unspecified. Released to Power Machine Operator. tw4
[2020-01-20] MEDS ORDERED: Phenylephrine HCl 10 MG/ML 1 ML VIAL ONE (22:22)
[2020-01-20] MEDS ORDERED: NA CHLORIDE 0.9% 250 ML ONE (22:22)
[2020-01-21 01:07] VITALS: TEMP 97.1
[2020-01-21 01:24] VITALS: BP 53/44; O2SAT 100
--- NOTE | 2020-01-21 08:27 | RAD REPORT ---
EXAM DESCRIPTION: RAD - Chest Single View - 01/20/2020 10:18 pm CLINICAL HISTORY: CHEST PAIN Chest pain. COMPARISON: Chest Pa And Lat (2 Views) dated 03/30/2019; CHEST PA AND LAT 2 VIEW dated 03/11/2012; C HEST PA AND LAT 2 VIEW dated 10/21/2011; CHEST SINGLE VIEW dated 08/14/2002 FINDINGS: Portable technique limits examination quality. The lungs are grossly clear. ET tube tip is above the lee. Enteric tube descends into the stomach. The heart is normal in size. Right-sided shunt tubing traverses the chest.
--- NOTE | 2020-01-23 11:17 | EKG ---
Test Date: 2020-01-20 Test Time: 21:26:13 Package Winder: NISHA MEASUREMENT RESULTS: Intervals: Rate: 81 MS: 190 QRSD: 92 QT: 372 QTc: 432 [place]: P: 77 MS: 190 QRS: -74 T: 22 INTERPRETIVE STATEMENTS: Sinus rhythm with occasional premature ventricular complexes Left axis deviation ST elevation, consider anterolateral injury or acute infarct ACUTE [place] Abnormal ECG Compared to ECG 01/20/2020 21:25:16 Ventricular premature complex(es) now present Fusion complex(es) no longer present ST (T wave) deviation still present Myocardial infarct finding still present Electronically Signed On 01-23-20 11:14:35 CDT by Jayro Rai
--- NOTE | 2020-01-23 11:17 | EKG ---
Test Date: 2020-01-20 Test Time: 21:25:16 Preschool Teacher'S Assistant: NISHA MEASUREMENT RESULTS: Intervals: Rate: 86 NV: 200 QRSD: 78 QT: 360 QTc: 430 [place]: P: 38 NV: 200 QRS: -77 T: 3 INTERPRETIVE STATEMENTS: Sinus rhythm with fusion complexes Left axis deviation Low voltage QRS ST elevation, consider anterolateral injury or acute infarct ACUTE [place] Abnormal ECG Compared to ECG 10/21/2011 16:02:19 Fusion complex(es) now present Left-axis deviation now present Low QRS voltage now present ST (T wave) deviation now present Myocardial infarct finding now present Sinus bradycardia no longer present First degree AV block no longer present Electronically Signed On 01-23-20 11:14:39 CDT by Jayro Rai
--- NOTE | 2020-01-23 11:17 | EKG ---
Test Date: 2020-01-20 Test Time: 21:45:36 Perinatal Tech: NISHA MEASUREMENT RESULTS: Intervals: Rate: 137 OK: 144 QRSD: 104 QT: 328 QTc: 495 [place]: P: [place]: 144 QRS: -62 T: 38 INTERPRETIVE STATEMENTS: Sinus tachycardia with occasional premature ventricular complexes and fusion complexes Left axis deviation Low voltage QRS RSR' or QR pattern in V1 suggests right ventricular conduction delay Anteroseptal infarct, possibly acute Lateral injury pattern ACUTE [place] Abnormal ECG Compared to ECG 01/20/2020 21:26:13 Fusion complex(es) now present Low QRS voltage now present RSR' in V1 or V2 now present Sinus rhythm no longer present ST (T wave) deviation no longer present Myocardial infarct finding still present Electronically Signed On 01-23-20 11:14:28 CDT by Jayro Rai
== END 2020-01-21 00:44 ==
LOC: ER 21:14
PROC: 0BH17EZ Insertion of Endotracheal Airway into Trachea, Via Natural or Artificial Opening (ICD-10-PCS; principal; 2020-01-21)
PROC: 5A1935Z Respiratory Ventilation, Less than 24 Consecutive Hours (ICD-10-PCS; 2020-01-21)
PROC: 06HT33Z Insertion of Infusion Device into Right Foot Vein, Percutaneous Approach (ICD-10-PCS; 2020-01-21)
DX: I21.01 ST elevation (STEMI) myocardial infarction involving left main coronary artery (principal); I21.29 ST elevation (STEMI) myocardial infarction involving other sites; D69.6 Thrombocytopenia, unspecified; I10 Essential (primary) hypertension
CPT/HCPCS: 92960; 92977; 93005 ×3; 85025; 80048; 36415; 83735; 85610; 82947; 80076; 83605; 84484; 83880; 71045; 31500; 51702; 92950; 99291; 94002; 36556; J2370; J1644 ×2; J3101; J0171; J1265; J7050; J7030 ×2; J1250; J2405